=== PATIENT | male | born 1985 | race Caucasian/White ===

== ENCOUNTER 2020-10-02 10:48 | Emergency (ER) | payer SELFPAY ==
[~2020-10-02] VITALS: Ht 175.3 cm; Wt 77.1 kg
[2020-10-02 10:50] VITALS: BP 132/89
--- NOTE | 2020-10-02 10:50 | NUR ---
PT AMBULATED TO BED 8.
[2020-10-02] MEDS ORDERED: fentaNYL citrate 0.05 MG/ML VIAL IVP ONE (11:05)
[2020-10-02] MEDS ORDERED: NACL 0.9% 1,000 ML IV ONE (11:05)
[2020-10-02] MEDS ORDERED: BACITRACIN OINT 500 UNITS/GM PKT TP ONE ×2 (11:08→12:10)
--- NOTE | 2020-10-02 11:21 | NUR ---
PT'S WOUND CLEANED AND IRRIGATED WITH NORMAL SALINE AND APPLIED BACITRAIN TP PT'S WOUND
[2020-10-02 11:26] LABS: BASOPHILS % (AUTO) 0.4 % (0.0-2.0); EOSINOPHILS # (AUTO) 0.1 K/uL (0-0.4); EOSINOPHILS % (AUTO) 1.5 % (0.0-4.0); HEMATOCRIT 43.1 % (36-52); HEMOGLOBIN 14.7 g/dL (12.0-18.0); LYMPHOCYTES # (AUTO) 1.5 K/uL (2.0-11.5); MEAN CORPUSCULAR HEMOGLOBIN 30 pg (27-31); MEAN CORPUSCULAR HGB CONC 34 g/dL (33-37); MEAN CORPUSCULAR VOLUME 87.3 fL (80-94); MONOCYTES # (AUTO) 0.7 K/uL (0.8-1.0); MONOCYTES % (AUTO) 7.6 % (1.7-9.3); NEUTROPHILS # (AUTO) 6.4 K/uL (1.8-7.7); NEUTROPHILS % (AUTO) 73.5 % (42.2-75.2); PLATELET COUNT (AUTO) 220 K/uL (140-450); RED BLOOD CELL COUNT(AUTO) 4.93 MIL/uL (4.20-6.10); RED CELL DISTRIBUTION WIDTH 13.2 % (11.6-13.7); WHITE BLOOD COUNT (AUTO) 8.7 K/uL (4.8-10.8)
[2020-10-02 11:34] LABS: ANION GAP 9.4 (8-16); CARBON DIOXIDE 29.4 mmol/L (21-32); CREATININE 1.2 mg/dL (0.6-1.3); POTASSIUM 3.8 mmol/L (3.5-5.1)
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
[2020-10-02] MEDS ORDERED: MORPHINE SULFATE 4 MG/ML SYR IVP ONE (13:25)
[2020-10-02] MEDS ORDERED: KETOROLAC 30 MG/ML VIAL IVP ONE (13:50)
[2020-10-02] MEDS ORDERED: ACET-8386 PO (15:18)
[2020-10-02] MEDS ORDERED: NAPR-54 PO (15:18)
[2020-10-02] MEDS ORDERED: LID5T TP (15:18)
[2020-10-02 18:14] VITALS: BP 118/73
--- NOTE | 2020-10-02 18:14 | NUR ---
Patient discharged with v/s stable. Written and verbal after care instructions given and explained. Patient alert, oriented and verbalized understanding of instructions. Ambulatory with steady gait. All questions addressed prior to discharge. ID band removed. Patient advised to follow up with PMD. Rx of Lidocaine Patch and Naproxen given. Patient educated on indication of medication including possible reaction and side effects. Opportunity to ask questions provided and answered.
--- NOTE | 2020-10-02 18:14 | NUR ---
IV removed, catheter intact and site benign. Applied folded 4x4 gauze and tape to stop bleeding.
== END 2020-10-02 18:14 | disposition home or self-care (01) ==
LOC: MED 10:48
DX: S20.211A Contusion of right front wall of thorax, initial encounter (principal); S00.91XA Abrasion of unspecified part of head, initial encounter; J93.9 Pneumothorax, unspecified; V89.2XXA Person injured in unspecified motor-vehicle accident, traffic, initial encounter; Y93.89 Activity, other specified; Y92.89 Other specified places as the place of occurrence of the external cause; Y99.8 Other external cause status
CPT/HCPCS: 36415; 70450; 71046; 71260; 72125; 74177; 80048; 85025; 85610; 85730; 96361; 96374; 96375; 99285; G0482; J1885; J2270; J3010; J7030; Q9967